=== PATIENT | female | born 1970 | race African-American/Black ===

== ENCOUNTER 2017-01-05 22:04 | Emergency (ER) | payer MEDICAID, MEDICARE ==
[~2017-01-05] VITALS: Ht 149.9 cm; Wt 90.9 kg
[2017-01-05] MEDS ORDERED: HYDROCODONE/ACETAMINOPHEN 5/325MG TABLET PO ONE (23:15)
[2017-01-06 02:05] VITALS: BP 116/67
== END 2017-01-06 03:33 | disposition home or self-care (01) ==
LOC: ER 22:05
DX: S63.501A Unspecified sprain of right wrist, initial encounter (principal); W05.1XXA Fall from non-moving nonmotorized scooter, initial encounter; Y93.89 Activity, other specified; Y99.8 Other external cause status; Y92.89 Other specified places as the place of occurrence of the external cause
CPT/HCPCS: 29125; 73110; 99284; Z7610; A4565

== ENCOUNTER 2017-08-20 09:33 | Emergency (ER) | payer MEDICARE, MEDICAID ==
[~2017-08-20] VITALS: Ht 149.9 cm; Wt 84.0 kg
[2017-08-20 10:02] VITALS: BP 121/72
== END 2017-08-20 12:29 | disposition left against medical advice (07) ==
LOC: ER 10:14
DX: H57.8 Other specified disorders of eye and adnexa (principal); Z53.21 Procedure and treatment not carried out due to patient leaving prior to being seen by health care provider

== ENCOUNTER 2017-08-20 13:23 | Emergency (ER) | payer MEDICARE, MEDICAID ==
[~2017-08-20] VITALS: Ht 149.9 cm; Wt 84.0 kg
[2017-08-20 14:31] VITALS: BP 124/75
== END 2017-08-20 16:10 | disposition home or self-care (01) ==
LOC: ER 13:33
DX: H10.13 Acute atopic conjunctivitis, bilateral (principal)
CPT/HCPCS: 99283